=== PATIENT | male | born 1965 | race Native Hawaiian/Other Pacific Islander ===

== ENCOUNTER 2022-10-29 10:09 | Outpatient (CLI) | payer BC, SELFPAY ==
[2022-10-29 11:44] LABS: Albumin* 4.5 g/dL (3.3-5.0); Chloride* 105 mmol/L (96-114)
[2022-10-29 11:45] LABS: Potassium* 4.9 mmol/L (3.6-5.1); Sodium* 137 mmol/L (135-149)
[2022-10-29 11:47] LABS: Aspartate Amino Transferase* 28 U/L (12-35); Bilirubin Total* 0.7 mg/dL (0.1-1.5); Blood Urea Nitrogen* 12 mg/dL (7-30); Carbon Dioxide* 25 mmol/L (20-32); Cholesterol* 235 mg/dL (90-199); Creatinine* 0.8 mg/dL (0.5-1.5); Estimated Glomerular Filt Rate 104 ml/min; Glucose* 289 mg/dL (60-115); Total Protein* 7.8 g/dL (6.0-8.3)
[2022-10-29 11:48] LABS: Alanine Aminotransferase* 28 U/L (4-50); Alkaline Phosphatase* 120 U/L (40-150); Calcium* 9.1 mg/dL (8.4-10.6); HDL Cholesterol* 38 mg/dL (>=40); LDL Cholesterol Calculated 109 mg/dL (<100)
[2022-10-29 11:51] LABS: Triglycerides* 438 mg/dL (40-149)
[2022-10-29 12:19] LABS: PSA Screen* 3.34 ng/mL (0.10-4.00)
== END 2022-10-29 10:10 | disposition home or self-care (01) ==
PROVIDERS: PCP Family Medicine; Visit Provider Family Medicine
DX: R53.83 Other fatigue (principal); R35.89 Other polyuria; R63.1 Polydipsia; R35.1 Nocturia; Z12.5 Encounter for screening for malignant neoplasm of prostate; Z13.6 Encounter for screening for cardiovascular disorders
CPT/HCPCS: 80053; 80061; 84153; 84443

== ENCOUNTER 2024-09-19 08:00 | Outpatient (CLI) | payer OTHER, SELFPAY | END 2024-09-19 08:01 | disposition home or self-care (01) | LOC: NFLDREF 09-20 11:03 | PROVIDERS: PCP Family Medicine; Referring Provider Family Medicine; Visit Provider Family Medicine | DX: E11.69 Type 2 diabetes mellitus with other specified complication (principal); E78.5 Hyperlipidemia, unspecified | CPT/HCPCS: 80053; 80061 ==

== ENCOUNTER 2025-01-26 07:39 | Outpatient (CLI) | payer OTHER, SELFPAY | END 2025-01-26 07:40 | disposition home or self-care (01) | LOC: NFLDREF 02-03 18:36 | PROVIDERS: PCP Family Medicine; Referring Provider Family Medicine; Visit Provider Family Medicine | DX: E11.65 Type 2 diabetes mellitus with hyperglycemia (principal); E78.5 Hyperlipidemia, unspecified; Z79.84 Long term (current) use of oral hypoglycemic drugs | CPT/HCPCS: 80061; 84450; 84460 ==

== ENCOUNTER 2025-05-08 10:29 | Outpatient (CLI) | payer OTHER, SELFPAY | END 2025-05-08 10:30 | disposition home or self-care (01) | LOC: AMB 05-09 10:31 | PROVIDERS: PCP Family Medicine; Visit Provider Emergency Medicine | DX: I21.3 ST elevation (STEMI) myocardial infarction of unspecified site (principal) | CPT/HCPCS: A0425; A0427 ==

== ENCOUNTER 2025-05-08 10:53 | Emergency (ER) | payer OTHER, SELFPAY ==
[2025-05-08] VITALS (7 sets, daily range): BP systolic 123–136; BP diastolic 88–93; PULSE 97–106; RESP 12–29; TEMP 36.6; O2SAT 2–98; BMI 28.2
--- OUTSIDE RECORDS SUMMARY | 2025-05-08 10:56 | XMS_ITS | Clinical Summary ---
Author Organization [facility] Address [address] [place] [id number] Care Team Providers Care Watch Crystal Molder Name Role Phone No Ref-Primary, Physician Primary Care Provider Allergies No known active allergies Medications Calcium Carbonate (CALCIUM 500 PO) Take 1 tablet by mouth daily Active Family History Medical History Relation Comments Colon Cancer No family hx of Social History Tobacco Use Types Packs/Day Years Used Date Smoking Tobacco: Never Smokeless Tobacco: Never Alcohol Use Standard Drinks/Week Comments Yes 0 (1 standard drink = 0.6 oz pur e alcohol) Adolescent Education Answer Date Record ed Getting School Help Needed Not on file 06/27 Sex and Gender Information Value Date Recorded Sex Assigned at Not on file 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
--- OUTSIDE RECORDS SUMMARY | 2025-05-08 10:56 | XMS_ITS | Clinical Summary ---
Author Organization [facility] Address [address] [place] [id number] Care Team Providers Care Product Examiner Name Role Phone Pcp, No Primary Care Provider Unavailabl e Allergies Active Allergy Reactions Criticality Noted Date Comments Unlisted Allergen (Include Detail In Comments) Runny Nose 08/04/2017 Seasonal allergies Medications ibuprofen (ADVIL; MOTRIN) 200 mg tablet Take 1 tablet by mouth 4 times daily if needed. 0 08/04/2017 Active olopatadine (PATANOL) 0.1 % ophthalmic solutionIndicati ons:Allergic conjunctivitis, unspecified laterality Place 1 Drop into both eyes 2 times daily. 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 Gender Identity Not on file Sexual Orientation Not on file Obstetrics History Last Filed Vital Signs Vital Sign Reading Time Taken Comments Blood Pressure 126/78 01/14/2018 12:58 PM CDT Pulse 73 01/14/2018 12:58 PM CDT Temperature 36.4 C (97.6 F) 01/14/2018 12:58 PM CDT Respiratory Rate - - Oxygen Saturation 94% 01/14/2018 12:58 PM CDT Inhaled Oxygen Concentration - - Weight 93 kg (205 lb) 01/14/2018 12:58 PM CDT Height 169.8 cm (5' 6.85) 01/14/2018 12:58 PM C DT Body Mass Index 32.25 01/14/2018 12:58 PM CDT Plan of Treatment Health Maintenance Due Date Last Done Comments HIV for age 15-65 1981 Hepatitis C screening for ag e 18-79 1984 Hepatitis B series for 19+ ( 1 of 3 - 19+ 3-dose series) 1985 Tetanus booster 04/11/2009 04/11/1999 Colonoscopy through age 75 2011 Lipids for age 45-75 2011 Pneumococcal series for age 50+ (1 of 1 - PCV) 2016 Zoster (shingles) series for age 50+ (1 of 2) 2016 BMI (ht and wt on same day) for age 18+ 01/14/2019 01/14/2018, 11/04/2017, 10/09/2017, Additional history exists Depression screening for age 12+ 01/14/2019 01/15/20 18 COVID-19 vaccine series ( - 2023- season) 2024 Influenza Vaccine (#1) 2025 Insurance [id number] [id number] [employer] OF [employer] Care Teams Product Examiner Relationship Specialty Start Date End Date Pcp, No . PCP - General 02/11/21
--- NOTE | 2025-05-08 11:04 | CRLHL7_ITS ---
For Patients: As a result of the Century Cures Act, medical imaging exams and procedure reports are released immediately into your electronic medical record. You may view this report before your referring provider. If you have questions, please contact your health care provider. INDICATION: Chest pain. Myocardial infarction. COMPARISON: None. TECHNIQUE: Single frontal radiographic view(s) of the chest. FINDINGS: Defibrillator pads project over the left hemithorax. No substantial pleural effusion. No definite focal pulmonary consolidation. Normal heart size. No acute osseous findings. There are osseous degenerative changes. IMPRESSION: No acute thoracic findings. Dictated by Andrea Solomon MD @ 05/08/2025 11:37:44 AM (Electronically Signed)
--- NOTE | 2025-05-08 11:09 | ED_ITS ---
HPI - General Adult General Time Seen by Provider: 11:10 Date Seen: 05/08/25 Chief complaint: Chest Pain Stated complaint: chest pain Time Seen by Provider: 05/08/25 11:04 Source: patient Mode of arrival: EMS Limitations: no limitations History of Present Illness HPI narrative: Skyler is a 59-year-old male with diabetes needs type 2, lipidemia presents emerged department from urgent care in [place] by EMS with chest pain. Using a full time staff interpreter patient states he had left-sided chest discomfort over the last 3 days. Patient feels is worse with any type of exertion or inspiration. Patient denies any diaphoresis, lightheadedness or dizziness. Patient denies any previous tobacco use. Patient denies any chest pain in the past. Pain is on the left side of the chest, pressure like, no radiation. Pain at this time is 2/10, he did receive one Nitro sublingual, full dose aspirin prior to his arrival. Twelve lead showed anterior septal infarct acute ST elevation and he was brought here as a level 1. Related Data Previous Rx's ?Medication ?Instructions ?Recorded blood-glucose meter (FreeStyle 1 ea miscellaneous NOBLE Y PRN DMII 11/19/22 Bostwick kit) #1 ea metformin 500 mg tablet,extended 2,000 mg (4 x 500 mg) PO QDAY #360 01/26/25 release 24 hr tabs terbinafine HCl 250 mg tablet 250 mg PO QDAY #84 tabs 01/26/25 atorvastatin 80 mg tablet 80 mg PO QHS #90 tabs blood sugar diagnostic (Accu-Chek #100 ea 05/04/25 Guide test strips) lancets 28 gauge #100 ea 05/04/25 trazodone 50 mg tablet 50 - 100 mg (1 - 2 x 50 mg) PO QHS 05/04/25 PRN insomnia #30 tabs Allergies Allergy/AdvReac Type Severity Reaction Status Date / Time No Known Allergies Allergy Unknown Verified 05/08/25 10:06 Review of Systems Status of ROS: Reports: 10 or more systems reviewed and unremarkable except as noted in History and below [facility] Surgical History (Updated 10/23/22 @ 16:09 by Valentina Calderon) History of bilateral inguinal hernia repair ?Z98.890 - Other specified postprocedural states (ICD-10) ?Z87.19 - Personal history of other diseases of the digestive system (ICD-10) Family History (Updated 10/23/22 @ 16:13 by Valentina Calderon) Mother Heart disease Father Diabetes Social History (Updated 09/22/24 @ 14:08 by Marysol Sorenson~[facility], [facility]) Narrative: , 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, 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[place], 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, social EtOH What is your current living situation?: I have a place to live at present, but am concerned about future Problems where you live: no known problems In the past 12 months, utilities in danger of being shut off: yes In past 12 months, lack of transportation kept you from medical appts, meetings, work, or getting things needed for daily living: yes In the past 12 mos, have been you worried that your food would run out before you had money to buy more?: sometimes true In the past 12 mos, the food you bought just didn't last and you didn't have money to buy more?: sometimes true Smoking Status: Former smoker How often does anyone, including family, friends and others, physically hurt you : never How often does anyone, including family, friends and others, insult or talk down to you: never How often does anyone, including family, friends and others, threaten you with harm: never How often does anyone, including family, friends and others, scream or curse at you: never Health Related Social Needs: housing instability, housed, with risk of homelessness (Z59.811), food insecurity (Z59.41) and transportation insecurity (Z59.82) Exam Narrative: Exam Narrative: General: No obvious distress sitting comfortably HEENT: Neck is supple, no JVD Pupils equal round reactive to light, extraocular muscles intact Lungs: Clear to auscultation bilaterally Heart: Sinus tachycardia Abdomen: Nontender to palpation a bowel sounds present Neuro: Alert awake and oriented x3 Muscle skeletal: No lower extremity edema, FROM Const: Vital Signs, click to edit/add: Vital Signs - 24 hr 05/08/25 11:02 Temperature 98 F Pulse Rate [Right Pulse Oximeter] 104 H Respiratory Rate 18 Blood Pressure [Ri ght Upper Arm] 136/89 Pulse Oximetry 98 Oxygen Delivery Me thod Room Air Nasal Can nula Oxygen Flow Rate 2 Course Course ED Course: 10:50 AM: AIDET performed. Vitals are stable at this time, blood pressure 136/89, mild tachycardia 104, respiratory rate of 18, afebrile, 98% on 2 L, EKG at bedside showed acute SD STEMI in the anterior septal leads, level 1 activated, plan to reach out to [facility]. Will obtain EKG, troponin point of care, CBC, BMP, INR, CMP, XR chest portable one view. 11:00 AM: Was able to speak to Cardiology Dr. Rogers, we reviewed EKG results, agreed with level 1 and activation of the labor crew supervisor, this was discussed with patient using an diplomatic interpreter/translator and he understands had time to ask questions, patient will be transferred via air ambulance to [facility]. ACS heparin infusion ordered, Brilinta 180 mg to be given, nitro infusion p.r.n., patient continues to be pain-free at this time. Patient to be transferred to [facility]. Vital Signs Vital signs: Initial Vital Signs Temperature 98 F 05/08/25 11:02 Temperature Source Temporal Artery Scan 05/08/25 11:02 Pulse Rate 104 H 05/08/25 11:02 Respiratory Rate 18 05/08/25 11:02 Blood Pressure 136/89 05/08/25 11:02 Blood Pressure Mean 104 05/08/25 11:02 Blood Pressure Position Sitting 05/08/25 11:02 Pulse Oximetry 98 05/08/25 11:02 Oxygen Delivery Method Room Air, Nasal Cannula 05/08/25 11:02 Oxygen Flow Rate 2 05/08/25 11:02 Vital Signs Temperature 98 F 05/08/25 11:02 Pulse Rate 104 H 05/08/25 11:02 Respiratory Rate 18 05/08/25 11:02 Blood Pressure 136/89 05/08/25 11:02 Pulse Oximetry 98 05/08/25 11:02 Oxygen Delivery Method Room Air, Nasal Cannula 05/08/25 11:02 Oxygen Flow Rate 2 05/08/25 11:02 Temperature 98 F 05/08/25 11:02 Pulse Rate 104 H 05/08/25 11:02 Respiratory Rate 18 05/08/25 11:02 Blood Pressure 136/89 05/08/25 11:02 Pulse Oximetry 98 05/08/25 11:02 Oxygen Delivery Method Room Air, Nasal Cannula 05/08/25 11:02 Oxygen Flow Rate 2 05/08/25 11:02 Medications Administered Medications: Discontinued Medications Generic Name Dose Route Start Last Admin Trade Name Freq PRN Reason Stop Dose Admin Clopidogrel Bisulfate 600 mg 05/08/25 10:56 05/08/25 11:13 Clopidogrel 300 Mg Tablet PO 05/08/25 10:57 Not Given ONCE ONE Ticagrelor 180 mg 05/08/25 11:03 05/08/25 11:13 Ticagrelor 90 Mg Tablet PO 05/08/25 11:04 180 mg ONCE ONE Administration Discharge Plan Discharge Clinical Impression: ST elevation (STEMI) myocardial infarction Patient Disposition: Xfer Rosanne Moreau Prescriptions: No Action blood-glucose meter [Frogtek Bopyle Bostwick] Kit 1 ea miscellaneous DAILY PRN (Reason: DMII) Qty: 1 0RF metformin 500 mg tablet extended release 24 hr 2,000 mg PO QDAY Qty: 360 2RF terbinafine HCl 250 mg tablet 250 mg PO QDAY Qty: 84 0RF (DME) lancets 28 gauge misc See Rx Instructions .Route Qty: 100 3RF Rx Instructions: As directed (DME) Accu-Chek Guide test strips Strip See Rx Instructions .Route Qty: 100 11RF Rx Instructions: As directed trazodone 50 mg tablet 50 - 100 mg PO QHS PRN (Reason: insomnia) Qty: 30 5RF atorvastatin 80 mg tablet 80 mg PO QHS Qty: 90 2RF Stand Alone Forms: MyHealth Info Instructions
[2025-05-08] MEDS: TICAGRELOR 90 MG TABLET 180 MG PO (11:13)
[2025-05-08 11:14] LABS: Hematocrit* 44.5 % (37.0-53.0); Hemoglobin* 15.5 gm/dL (13.5-17.5); Mean Corpuscular HGB Conc 35 gm/dL (32-36); Mean Corpuscular Hemoglobin 31 pg (26-34); Mean Corpuscular Volume 90 fL (80-100); Red Blood Count* 4.95 m/uL (4.30-5.90); White Blood Count* 8.31 K/uL (4.50-11.00)
[2025-05-08] MEDS: HEPARIN 5,000 UNIT/0.5 ML INJ 4000 UNIT IVP (11:17)
[2025-05-08] MEDS: HEPARIN 25,000 UNIT/500 ML BAG 19 UNIT IV (11:19)
[2025-05-08 11:39] LABS: Troponin, Point-of-Care* 7.91 ng/ml (0.01-0.04)
[2025-05-08 11:46] LABS: INR 0.99 (0.91-1.10); Prothrombin Time 13.9 Seconds
[2025-05-08 11:50] LABS: Albumin* 4.4 g/dL (3.3-5.0); Chloride* 101 mmol/L (96-114); Potassium* 4.0 mmol/L (3.6-5.1); Sodium* 134 mmol/L (135-149)
[2025-05-08 11:53] LABS: Alanine Aminotransferase* 29 U/L (4-50); Alkaline Phosphatase* 91 U/L (40-150); Anion Gap 10 mEq/L (7-15); Aspartate Amino Transferase* 65 U/L (12-35); Bilirubin Total* 1.2 mg/dL (0.1-1.5); Blood Urea Nitrogen* 19 mg/dL (7-30); Calcium* 8.8 mg/dL (8.4-10.6); Carbon Dioxide* 23 mmol/L (20-32); Creatinine* 0.9 mg/dL (0.5-1.5); Est. Creatinine Clearance* 83.65; Estimated Glomerular Filt Rate 99 ml/min; Glucose* 226 mg/dL (60-115); Total Protein* 7.9 g/dL (6.0-8.3)
[2025-05-08 12:00] LABS: Slide Review Reflex No
== END 2025-05-08 11:44 | disposition short-term general hospital (02) ==
PROVIDERS: Emergency Provider Student in an Organized Health Care Education/Training Program; PCP Family Medicine
DX: I21.3 ST elevation (STEMI) myocardial infarction of unspecified site (principal); E11.9 Type 2 diabetes mellitus without complications; E78.5 Hyperlipidemia, unspecified; Z87.891 Personal history of nicotine dependence; Z79.84 Long term (current) use of oral hypoglycemic drugs; Z79.899 Other long term (current) drug therapy
CPT/HCPCS: 36415; 71045; 80053; 84484; 85027; 85610; 85730; 94761; 99281; 99285; 99291; A9270; J1644

== ENCOUNTER 2025-05-08 11:30 | Outpatient (CLI) | payer OTHER, SELFPAY | END 2025-05-08 11:31 | disposition home or self-care (01) | LOC: AMB 06-01 17:35 | PROVIDERS: PCP Family Medicine; Visit Provider Emergency Medicine | DX: I21.3 ST elevation (STEMI) myocardial infarction of unspecified site (principal) | CPT/HCPCS: A0425; A0434 ==

== ENCOUNTER 2025-05-16 16:10 | Outpatient (CLI) | payer OTHER, SELFPAY | END 2025-05-16 16:11 | disposition home or self-care (01) | LOC: NFLDREF 16:11 | PROVIDERS: PCP Family Medicine; Visit Provider Family Medicine | DX: I25.10 Atherosclerotic heart disease of native coronary artery without angina pectoris (principal) | CPT/HCPCS: 80048 ==